=== PATIENT | female | born 1960 | race Caucasian/White ===

== ENCOUNTER 2025-01-24 15:48 | Emergency (ER) | payer MEDICAID ==
[~2025-01-24] VITALS: Ht 144.8 cm; Wt 79.7 kg
[~2025-01-24 15:48] MED LIST: ALBU108A5 IN; PRED20TA2 PO
--- NOTE | 2025-01-24 16:15 | ED.PDOC ---
Musculoskeletal HPI Comments 64 y/o obese F presents with c/c of bilateral lower leg and thigh swelling for 1 week. Patient reports on experiencing another "lupus attack," again. She does not take any current steroids or Lasix but is, usually, given Lasix whenever she experiences a lupus flare-up episode. Patient's lupus is overseen by her nuclear worker technician, who is located at [facility]. She denies any further acute symptoms. Patient is requesting refill on lasix and prednisone medication Past medical history: lupus, fibromyalgia, osteopetrosis, acute renal failure Past surgical history: , knee surgery HPI: Poor Historian. REVIEW OF SYSTEMS: CONSTITUTIONAL: Denies acute: fever, diaphoresis, chills, HEAD: Denies acute: headache, photophobia Eyes: Denies acute: Double vision, vision loss, eye pain, eye discharge. EARS: Denies acute: tinnitus, hearing loss, ear discharge, ear pain, THROAT: Denies acute: sore throat, swelling, difficulty swallowing , pain with swallowing, change in voice. NECK: Denies acute: neck pain, neck swelling, stiff neck. HEART: Denies acute : chest pain, palpitations, LUNGS: Denies acute: SOB, wheezing, cough, hemoptysis ABDOMEN: Denies acute: abdominal pain, Nausea, Vomiting, diarrhea, melena , hematemesis, hematochezia SKIN: Denies acute: rash, redness, lesions, itchiness. EXTREMITIES: Denies acute: calf pain, numbness, tingling, weakness, Denies acute: Low back pain. Neuro: Denies acute: focal neurological deficit, motor or sensory focal neurological deficit, tremors, seizure like activity, confusion, dizziness, change in mental status, loss of bowel or bladder function, cauda equina like symptoms. : Denies acute: dysuria, hematuria, flank pain, increase in urinary frequency. PSYCH: Denies acute: hallucination, suicidal ideation, homicidal ideation. FEMALE: Denies acute: abnormal vaginal bleeding, foul odor, unusual discharge. PHYSICAL EXAM: General: ----no----acute distress, awake and alert. Head: normocephalic, atraumatic. No raccoon's eyes, no mahoney sign. Neck: supple, trachea is midline, no swelling. Throat: Normal phonation. Eyes:, no erythema, no purulent discharge, no proptosis, no icterus. Heart: regular rate, regular rhythm, no significant murmur appreciated. Lungs: no apparent respiratory distress, Able to speak in full sentences. No wheezing, no rhonchi, no crackles. No stridors Clear to auscultation bilaterally. Abdomen: non tender to palpation, non distended, soft, no guarding, no rebound, + bowel sounds. Obese Neuro: Awake, Alert, oriented to name, self, situation, follows commands GCS=15. Speech is normal. Skin: no petechia, no purpura, no cyanosis, non-pale, not jaundice. Lower extremities: --no - Pitting edema no deformity, no focal swelling, no calf TTP. Patient points to her bilateral lateral posterior thighs where she feels some tightness and swelling. These are recurrent symptoms that she gets whenever she gets a lupus flare up she says. Makes eye contact. moves all four extremities. Face: no apparent facial droop. Ambulating in the ED with a scooter but able to stand up. ED COURSE: DISCLAIMER: This medical document was created using an electronic medical record system with voice recognition software and computerized dictation system. Although this document has been carefully reviewed, there might still be some phonetic and typographical errors. Occasional wrong-word or "sound-alike" substitutions may have occurred due to the inherent limitations of voice recognition software. The se areas are purely typographical due to imperfections of the software programs and do not reflect any compromise in the patient's medical care. Please read the chart carefully and recognize, using context, where these substitutions have occurred. Chief Complaint: Extremity Swelling Time Seen by MD: 16:00 Reviewed Notes: Nurses Notes, Medications, Allergies Allergies: Coded Allergies: Egg-derived Products (Verified Allergy, Unknown, 01/24/25) Sulfa Antibiotics (Verified Allergy, Unknown, 04/08/23) Home Meds Active Scripts Prednisone (Prednisone) 20 Mg Tab, 20 MG PO DAILY for 5 Days, #5 TAB Prov:NANCY BRO DO 01/24/25 Furosemide (Lasix) 20 Mg Tb, 1 TAB PO DAILY for 5 Days, #5 TAB 0 Refills Prov:NANCY BRO DO 01/24/25 Prednisone (Prednisone) 20 Mg Tab, 60 MG PO DAILY for 5 Days, #15 MG Prov:JENNIE MACK MD 04/08/23 Albuterol Sulfate (Albuterol Sulfate Hfa) 108 Mcg/Act Aer, 108 MCG IN Q8HR PRN, #1 AER Prov:JENNIE MACK MD 04/08/23 Information Source: Patient Mode of Arrival: Ambulatory Location: Bilateral Past Medical History PAST MEDICAL HISTORY: Denies Surgical History: Denies all surgeries CLOTH FOLDER HAND History: No Pertinent CLOTH FOLDER HAND History Family History Family History: Unknown Social History Smoker: Non-Smoker Alcohol: Denies ETOH Use Drugs: Denies Drug Use Lives In: Home Was a procedure done? Was a procedure done?: No X-Ray, Labs, Meds, VS Vital Signs Date Time Temp Pulse Resp B/P (MAP) Pulse Ox O2 Delivery O2 Flow Rate FiO2 01/24/25 19:53 97.8 61 18 137/42 (73) 99 97.8 01/24/25 15:52 98.3 70 18 132/69 98 98.3 Lab Test 01/24/25 17:51 01/24/25 16:19 Range/Units Troponin I High Sensitivity 4 5 </=34 ng/L White Blood Count 3.1 L 4.4-10.8 10^3/uL Red Blood Count 2.85 L 4.0-5.20 10^6/uL Hemoglobin 10.5 L 12.2-16.2 g/dL Hematocrit 31.0 L 36.0-46.0 % Mean Corpuscular Volume 109.0 H 80.0-100.0 fL Mean Corpuscular Hemoglobin 37.0 H 28.0-32.0 pg Mean Corpuscular Hemoglobin Concent 34.0 32.0-36.0 g/dL Red Cell Distribution Width 17.6 H 11.8-14.3 % Platelet Count 104 L 140-450 10^3/uL Mean Platelet Volume 9.3 6.9-10.8 fL Neutrophils (%) (Auto) 78.8 37.0-80.0 % Lymphocytes (%) (Auto) 11.2 10.0-50.0 % Monocytes (%) (Auto) 5.4 0.0-12.0 % Eosinophils (%) (Auto) 3.5 0.0-7.0 % Basophils (%) (Auto) 1.1 0.0-2.0 % Neutrophils # (Auto) 2.4 1.6-8.6 10 ^3/uL Lymphocytes # (Auto) 0.3 L 0.4-5.4 10 ^3/uL Monocytes # (Auto) 0.2 0-1.3 10 ^3/uL Eosinophils # (Auto) 0.1 0-0.8 10 ^3/uL Basophils # (Auto) 0 0-0.2 10 ^3/uL Nucleated Red Blood Cells 0.4 % Erythrocyte Sedimentation Rate 41 H 0-20 mm/hr Sodium Level 142 136-145 mmol/L Potassium Level 4.1 3.5-5.1 mmol/L Chloride Level 108 H 98-107 mmol/L Carbon Dioxide Level 25 20-31 mmol/L Anion Gap 9 5-15 Blood Urea Nitrogen 34 H 9-23 mg/dL Creatinine 1.13 H 0.550-1.02 mg/dL Glomerular Filtration Rate Calc 55 >90 mL/min BUN/Creatinine Ratio 30.1 H 10.0-20.0 Serum Glucose 83 74-106 mg/dL Calcium Level 9.6 8.7-10.4 mg/dL Total Bilirubin 1.2 H 0.2-1.0 mg/dL Aspartate Amino Transferase (AST) 33 13-40 U/L Alanine Aminotransferase (ALT) 18 7-40 U/L Alkaline Phosphatase 122 H 46-116 U/L C-Reactive Protein High Sensitivity 0.10 <1.0 mg/dL B-Type Natriuretic Peptide 106.58 0-100 pg/mL Total Protein 7.0 5.7-8.2 g/dL Albumin 4.0 3.2-4.8 g/dL Current Medications Medications (Trade) Dose Ordered Sig/Alicja Route Start Time Stop Time Status Last Admin Prednisone 40 mg ONCE ONCE PO 01/24/25 17:45 01/24/25 17:51 DC 01/24/25 19:29 Time of 1ST Reevaluation: 16:00 Reevaluation 1ST: Unchanged Patient Education/Counseling: Diagnosis, Treatment Departure 1 Departure Time of Disposition: 16:24 Impression: Primary Impression: Lupus Additional Impressions: Leg swelling Anemia Disposition: 01 HOME / SELF CARE / HOMELESS Condition: Stable Additional Instructions: Additional instructions: Please read all instructions provided in this packet carefully. You MUST follow-up with your primary care/family doctor in 1 to 2 days. If you are unable to see your primary care/family doctor, please return to our emergency room for re-assessment and re-evaluation in 1 to 2 days. Return to the emergency room here in our facility or to the nearest ER [facility] if your symptoms change or worsen. CONSULTATIONS: you MUST Follow-up for consultation as soon as possible with: -rheumatology and cardiology in 1-2 days. Please call for appointment. You MUST call the consultants office yourself to make an appointment. You may need to arrange that through your insurance and/or your primary/family doctor. If you are unable to see the urban design consultant in 1 to 2 days, you must return to our emergency room (or any other ER of your choice) for re-assessment and re- evaluation. Adequate fluid hydration. Repeat basic metabolic panel in 4-5 days. Although you have been discharged from the Emergency Department, this does not mean that you have a "clean bill of health". No definitive diagnosis for your symptoms has been made today. It is possible that you are in the process of developing a serious illness. This is why you must return to the ED without fail if any new or worsening symptoms develop. e-Prescriptions Prednisone (Prednisone) 20 Mg Tab 20 MG PO DAILY for 5 Days, #5 TAB Prov: NANCY BRO DO 01/24/25 Furosemide (Lasix) 20 Mg Tb 1 TAB PO DAILY for 5 Days, #5 TAB 0 Refills Prov: NANCY BRO DO 01/24/25 Discharged With: Self Critical Care Note Critical Care Time?: No I personally scribed for NANCY BRO DO ([email or web address]) on 01/24/25 at 16:15. Electronically submitted by Dewayne Stratton [email or web address]). I personally scribed for NANCY BRO DO ([email or web address]) on 01/24/25 at 21:19. Elect ronically submitted by Adilia Escalante ([email or web address]). NANCY BRO DO Jan 24, 2025 16:15
[2025-01-24 16:39] LABS: Mean Corpuscular Hemoglobin 37.0 pg (28.0-32.0); Nucleated Red Blood Cells % 0.4 %
[2025-01-24 16:43] LABS: Hematocrit 31.0 % (36.0-46.0); Hemoglobin 10.5 g/dL (12.2-16.2); Mean Corpuscular Volume 109.0 fL (80.0-100.0)
[2025-01-24 16:55] LABS: Alanine Aminotransferase 18 U/L (7-40); Albumin 4.0 g/dL (3.2-4.8); Anion Gap 9 (5-15); BUN/Creatinine Ratio 30.1 (10.0-20.0); Calcium 9.6 mg/dL (8.7-10.4); Carbon Dioxide 25 mmol/L (20-31); Glucose 83 mg/dL (74-106); Potassium 4.1 mmol/L (3.5-5.1); Sodium 142 mmol/L (136-145); Total Protein 7.0 g/dL (5.7-8.2)
[2025-01-24 16:57] LABS: Alkaline Phosphatase 122 U/L (46-116); Bilirubin, Total 1.2 mg/dL (0.2-1.0); Blood Urea Nitrogen 34 mg/dL (9-23); Chloride 108 mmol/L (98-107)
[2025-01-24] MEDS: predniSONE 20 MG TAB PO ONE (19:29)
[2025-01-24] MEDS ORDERED: PRED20TA2 PO (21:15)
[2025-01-24] MEDS ORDERED: FURO1TAB33 PO (21:15)
[2025-01-25] MEDS: FUROSEMIDE 40 MG/4 ML VIAL IV ONE (00:10)
[2025-01-25 00:29] VITALS: BP 145/58; PULSE 68; RESP 19; TEMP 98.1; O2SAT 99
== END 2025-01-25 00:15 | disposition home or self-care (01) ==
LOC: ER 15:48
DX: D64.9 Anemia, unspecified (principal); M79.89 Other specified soft tissue disorders; L93.0 Discoid lupus erythematosus; E66.9 Obesity, unspecified; Z79.52 Long term (current) use of systemic steroids; Z79.899 Other long term (current) drug therapy; Z88.2 Allergy status to sulfonamides; Z68.38 Body mass index [BMI] 38.0-38.9, adult
CPT/HCPCS: 36415; 80053; 83880; 84484; 85025; 85652; 86141; 99283; J7512